=== PATIENT | male | born 1995 | race American Indian/Alaskan Native ===

== ENCOUNTER 2020-01-28 19:28 | Emergency (ER) | payer SELFPAY ==
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
[2020-01-28 20:44] LABS: Basophils # (Auto) 0.1 K/mm3 (0.0-0.1); Basophils % (Auto) 0.8 % (0.0-1.8); Eosinophils % (Auto) 0.1 % (0.0-4.3); Hematocrit 48.2 % (35.5-45.6); Hemoglobin 16.2 gm/dl (11.8-15.2); Lymphocytes # (Auto) 2.1 K/mm3 (1.2-5.4); Lymphocytes % (Auto) 10.7 % (13.4-35.0); Mean Corpuscular HGB Conc 34 % (32-34); Mean Corpuscular Volume 87 fl (84-94); Monocytes % (Auto) 5.4 % (0.0-7.3); Platelet Count 230 K/mm3 (140-440); Red Blood Count 5.53 M/mm3 (3.65-5.03)
[2020-01-28 20:56] LABS: INR 1.04 (0.87-1.13)
[2020-01-28 20:57] LABS: Partial Thromboplastin Time 23.9 Sec. (24.2-36.6)
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
[2020-01-28 21:10] LABS: Albumin 4.9 g/dL (3.9-5); Calcium 10.3 mg/dL (8.4-10.2)
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
[2020-01-28] MEDS ORDERED: SODIUM CHLORIDE 0.9% 1000 ML 1,000 ML IV ONE (21:31)
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
[2020-01-28] MEDS ORDERED: NEOMY 3.5 MG/BACIT 400 UNITS/POLY B 5000 UNITS/GM OINT PACKET TP ONE (22:55)
[2020-01-28 23:08] LABS: Bacteria,Urine 1+ /HPF (Negative); Bilirubin,Urine NEG (Negative); Blood,Urine NEG (Negative); Color,Urine Straw (Yellow); Mucus,Urine FEW /HPF; Protein,Urine <15 mg/dL mg/dL (Negative)
[2020-01-28 23:10] LABS: Amphetamine Screen,Urine PRESUMPTIVE NEGATIVE; Benzodiazepines Screen,Urine PRESUMPTIVE NEGATIVE; Cannabinoid Screen,Urine PRESUMPTIVE POSITIVE; Cocaine Screen,Urine PRESUMPTIVE NEGATIVE; Methadone Screen,Urine PRESUMPTIVE NEGATIVE; Opiate Screen,Urine PRESUMPTIVE NEGATIVE
[2020-01-28 23:49] VITALS: BP 112/71
== END 2020-01-29 00:55 ==
LOC: ED 19:28 → EEVIPCON 19:28 → ED 01-29 00:55
DX: S21.212A Laceration without foreign body of left back wall of thorax without penetration into thoracic cavity, initial encounter (principal); S41.112A Laceration without foreign body of left upper arm, initial encounter; S51.812A Laceration without foreign body of left forearm, initial encounter; M25.512 Pain in left shoulder; Z98.890 Other specified postprocedural states; Z79.899 Other long term (current) drug therapy; V49.9XXA Car occupant (driver) (passenger) injured in unspecified traffic accident, initial encounter; Y93.89 Activity, other specified; Y92.410 Unspecified street and highway as the place of occurrence of the external cause; Y99.8 Other external cause status
CPT/HCPCS: 36415; 70450; 71260; 72125; 73030; 73562; 74177; 80053; 80307; 81001; 82550; 83690; 85025; 85610; 85730; 86850; 86900; 86901; 96360; 99285; J7030; Q9967; A6250